=== PATIENT | female | born 1950 | race Two or more races ===

== ENCOUNTER → 2025-09-09 | Outpatient (CLI) | payer MEDICAID ==
[2025-09-09 11:30] LABS: Hematocrit 42.4 % (36.0-46.0); Hemoglobin 14.4 g/dL (12.2-16.2); Mean Corpuscular Hemoglobin 33.2 pg (28.0-32.0); Mean Corpuscular Volume 97.5 fL (80.0-100.0); Nucleated Red Blood Cells % 0.0 %
[2025-09-09 12:07] LABS: Alanine Aminotransferase 11 U/L (7-40); Alkaline Phosphatase 76 U/L (46-116); Anion Gap 10 (5-15); BUN/Creatinine Ratio 17.3 (10.0-20.0); Blood Urea Nitrogen 14 mg/dL (9-23); Calcium 9.3 mg/dL (8.7-10.4); Carbon Dioxide 31 mmol/L (20-31); Chloride 104 mmol/L (98-107); Glucose 89 mg/dL (74-106); Potassium 3.7 mmol/L (3.5-5.1); Sodium 145 mmol/L (136-145); Total Protein 7.4 g/dL (5.7-8.2); Triglycerides 93 mg/dL (< 150)
[2025-09-09 12:08] LABS: Albumin 4.6 g/dL (3.2-4.8); Bilirubin, Total 0.5 mg/dL (0.2-1.0); Cholesterol 160 mg/dL (< 200); HDL Cholesterol 59 mg/dL (40-59)
[2025-09-09 15:17] LABS: Hepatitis A Total Antibody Negative (Negative); Hepatitis B Surface Antigen Negative (Negative); Hepatitis C Antibody Negative (Negative)
[2025-09-10 09:07] LABS: Hematocrit 44.2 % (34.0-46.6); Hemoglobin 14.6 g/dL (11.1-15.9); MCH 33.5 pg (26.6-33.0); MCHC 33.0 g/dL (31.5-35.7); MCV 101 fL (79-97); RBC 4.36 x10E6/uL (3.77-5.28); RDW 12.2 % (11.7-15.4); WBC 4.2 x10E3/uL (3.4-10.8)
[2025-09-10 13:07] LABS: CD4/CD8 Ratio 1.89 (0.92-3.72)
[2025-09-11 03:07] LABS: Chlamydia Trachomatis, NAA Negative (Negative); Neisseria gonorrhoeae, NAA Negative (Negative)
== END | disposition home or self-care (01) ==
LOC: LAB 09:56
PROVIDERS: ATTEND Specialist
DX: I10 Essential (primary) hypertension (principal); E78.5 Hyperlipidemia, unspecified; B20 Human immunodeficiency virus [HIV] disease; G25.0 Essential tremor
CPT/HCPCS: 36415; 80053; 80061; 85025; 86360; 86704; 86706; 86708; 86780; 86803; 87340; 87536